=== PATIENT | female | born 1970 | race Asian ===

== ENCOUNTER 2017-09-17 08:05 | Outpatient (CLI) | payer OTHER ==
--- NOTE | 2017-09-17 10:23 | ULT ---
THYROID SONOGRAM: HISTORY: Thyroid nodules. COMPARISON: No prior exams are available for direct comparison. FINDINGS: Each thyroid lobe is 4.2 cm and the isthmus is 0.3 cm. Fairly homogeneous echotexture, aside from th e nodules. At the inferior pole, right thyroid lobe, a complex cystic nodule is well circumscribed. It measures up to 1.2 x 0.8 x 0.8 cm and contains some internal echogenic debris. An oval cyst within the mid p ortion, right thyroid lobe, is 0.5 cm. Along the right side of the isthmus is a 0.5 cm cystic lesion . At the inferior pole, left thyroid lobe, is a 0.3 cm, slightly complex, cystic lesion, with some i nternal debris. IMPRESSION: Bilateral thyroid cysts, as detailed above. No dominant aggressive lesion is apparent. POS: [facility]
== END 2017-09-17 08:06 | disposition home or self-care (01) ==
LOC: SCSMAMMO 08:05
PROVIDERS: ATTEND Family Medicine
DX: E04.1 Nontoxic single thyroid nodule (principal)
CPT/HCPCS: 76536; 77067